=== PATIENT | female | born 2000 | race American Indian/Alaskan Native ===

== ENCOUNTER 2021-11-03 15:34 | Outpatient (CLI) | payer OTHER ==
[2021-11-03] MEDS ORDERED: LACTATED RINGERS 1,000 ML IV ONE ×2 (16:32→19:30)
[2021-11-03] MEDS ORDERED: ACETAMINOPHEN 500 MG TAB PO ONE (17:00)
[2021-11-03 17:38] LABS: Basophils # (Auto) 0.1 K/mm3 (0.0-0.1); Basophils % (Auto) 0.7 % (0.0-1.8); Eosinophils # (Auto) 0.1 K/mm3 (0.0-0.4); Eosinophils % (Auto) 0.6 % (0.0-4.3); Hematocrit 27.9 % (30.3-42.9); Hemoglobin 9.4 gm/dl (10.1-14.3); Lymphocytes # (Auto) 0.2 K/mm3 (1.2-5.4); Lymphocytes % (Auto) 2.4 % (13.4-35.0); Mean Corpuscular HGB Conc 34 % (30-34); Mean Corpuscular Volume 94 fl (79-97); Monocytes % (Auto) 10.4 % (0.0-7.3); Platelet Count 225 K/mm3 (140-440); Red Blood Count 2.98 M/mm3 (3.65-5.03); Red Cell Distribution Width 12.8 % (13.2-15.2)
[2021-11-03 17:39] LABS: Bilirubin,Urine NEG (Negative); Blood,Urine NEG (Negative); Color,Urine Yellow (Yellow); Protein,Urine <15 mg/dL mg/dL (Negative); Urobilinogen,Urine < 2.0 mg/dL (<2.0)
[2021-11-03 17:43] LABS: Bacteria,Urine 1+ /HPF (Negative); Mucus,Urine FEW /HPF; RBC,Urine < 1.0 /HPF (0.0-6.0)
[2021-11-03 20:02] VITALS: BP 96/47
== END 2021-11-03 20:18 | disposition home or self-care (01) ==
LOC: TRG 15:34 → LD 15:37 → TRG 20:18
PROVIDERS: ATTEND Obstetrics & Gynecology
DX: O26.893 Other specified pregnancy related conditions, third trimester (principal); R51.9 Headache, unspecified; R10.2 Pelvic and perineal pain; M54.9 Dorsalgia, unspecified; M54.2 Cervicalgia; M79.604 Pain in right leg; M79.605 Pain in left leg; Z3A.29 29 weeks gestation of pregnancy
CPT/HCPCS: 36415; 59025; 81001; 85025; 96360; 96361; J7120

== ENCOUNTER 2022-01-08 00:34 | Inpatient (IN) | payer BC, OTHER ==
[2022-01-08] MEDS ORDERED: BUTORPHANOL 2 MG/1 ML INJ IV PRN (03:15)
[2022-01-08] MEDS ORDERED: TERBUTALINE 1 MG/1 ML INJ SUB-Q PRN (03:15)
[2022-01-08] MEDS ORDERED: fentaNYL 100 MCG/2 ML INJ IV PRN (03:15)
[2022-01-08] MEDS ORDERED: ACETAMINOPHEN 325 MG TAB PO PRN ×2 (03:15→15:01)
[2022-01-08] MEDS ORDERED: NALOXONE 0.4 MG/1 ML INJ IV PRN ×2 (03:15→11:32)
[2022-01-08] MEDS ORDERED: MINERAL OIL 30 ML ORAL LIQD PO PRN (03:15)
[2022-01-08] MEDS ORDERED: ONDANSETRON 4 MG/2 ML INJ IV PRN ×2 (03:15→15:00)
[2022-01-08] MEDS ORDERED: CARBOPROST TROMETHAMINE 250 MCG/1 ML INJ IM PRN (03:15)
[2022-01-08] MEDS ORDERED: LIDOCAINE (2%) 20 MG/1 ML VIAL 20 ML MDV INFILTRATI ONE (03:15)
[2022-01-08] MEDS ORDERED: OXYTOCIN 10 UNIT/1 ML INJ IM PRN (03:15)
[2022-01-08] MEDS ORDERED: miSOPROStol 200 MCG TAB PR PRN (03:15)
[2022-01-08] MEDS ORDERED: LOPERAMIDE 2 MG CAP PO PRN (03:15)
[2022-01-08] MEDS ORDERED: AMPICILLIN/NS 2 GM/100 ML 2 GM/100 ML BAG IV ONE (03:15)
[2022-01-08] MEDS ORDERED: METHYLERGONOVINE MALEATE 0.2 MG/ML VIAL IM PRN (03:15)
[2022-01-08] MEDS ORDERED: ePHEDrine SULFATE 50 MG/1 ML INJ IV PRN ×2 (03:15→11:32)
[2022-01-08 03:53] LABS: Hematocrit 33.3 % (30.3-42.9); Hemoglobin 11.4 gm/dl (10.1-14.3); Mean Corpuscular HGB Conc 34 % (30-34); Mean Corpuscular Volume 91 fl (79-97); Platelet Count 282 K/mm3 (140-440); Red Blood Count 3.68 M/mm3 (3.65-5.03); Red Cell Distribution Width 13.3 % (13.2-15.2)
[2022-01-08] MEDS ORDERED: OXYTOCIN DRIP 30 UNITS/500 ML BAG IV SCH ×2 (04:00)
[2022-01-08] MEDS: LACTATED RINGERS 1,000 ML IV SCH ×2 (04:10→13:24)
[2022-01-08] MEDS ORDERED: AMPICILLIN/NS 1 GM/50 ML 1 GM/50 ML BAG IV SCH (08:00)
--- NOTE | 2022-01-08 08:32 | History and Physical Report ---
History of Present Illness Date of examination: 01/08/22 Date of admission: January 08, 2022 Chief complaint: Leakage of fluid History of present illness: 21-year-old -0-0-1 at 38+1 weeks who presents with spontaneous rupture membranes and irregular uterine contractions. Patient initiated care late at 16 weeks estimated gestational age. Her course is complicated by anemia and STD exposure with chlamydia. The patient is GBS negative Past History Past Medical History: no pertinent history Past Surgical History: no surgical history Social history: single - Obstetrical History Expected Date of Delivery: 01/21/22 Actual Gestation: 38 Week(s) 1 Day(s) : 2 Para: 1 Hx # Term Pregnancies: 1 Number of Pregnancies: 0 Spontaneous Abortions: 0 Induced : 0 Number of Living Children: 1 Medications and Allergies Allergies Allergy/AdvReac Type Severity Reaction Status Date / Time No Known Allergies Allergy Unverified 11/03/21 16:31 Active Meds: Active Medications Acetaminophen (Acetaminophen 325 Mg Tab) 650 mg PO Q4H PRN PRN Reason: Pain, Mild (1-3) Butorphanol Tartrate (Butorphanol 2 Mg/1 Ml Inj) 1 mg IV Q2H PRN PRN Reason: Pain, Moderate(4-6) LABOR PAIN Carboprost Tromethamine (Carboprost Tromethamine 250 Mcg/1 Ml Inj) 250 mcg IM ONCE PRN PRN Reason: Uterine Bleeding Ephedrine Sulfate (Ephedrine Sulfate 50 Mg/1 Ml Inj) 10 mg IV Q2M PRN PRN Reason: Hypotension Fentanyl (Fentanyl 100 Mcg/2 Ml Inj) 100 mcg IV Q2H PRN PRN Reason: Pain,Severe (7-10) LABOR PAIN Oxytocin/Sodium Chloride (Pitocin/Ns 30 Unit/500ml) 30 units in 500 mls @ 2 mls/hr IV TITR MARLEEN; Protocol Lactated Ringer's (Lactated Ringers) 1,000 mls @ 125 mls/hr IV DIRECT MARLEEN Last Admin: 01/08/22 04:10 Dose: 125 mls/hr Oxytocin/Sodium Chloride (Pitocin/Ns 30 Unit/500ml) 30 units in 500 mls @ 40 mls/hr IV TITR MARLEEN; Protocol Ampicillin Sodium (Ampicillin/Ns 1 Gm/50 Ml) 1 gm in 50 mls @ 100 mls/hr IV Q4H MARLEEN; Protocol Loperamide HCl (Loperamide 2 Mg Cap) 2 mg PO ONCE PRN PRN Reason: give with Hemabate Methylergonovine Maleate (Methylergonovine Maleate 0.2 Mg/Ml Vial) 0.2 mg IM ONCE PRN PRN Reason: Uterine Bleeding Mineral Oil (Mineral Oil 30 Ml Oral Liqd) 30 ml PO QHS PRN PRN Reason: Constipation Misoprostol (Misoprostol 200 Mcg Tab) 800 mcg KS ONCE PRN PRN Reason: Uterine Bleeding Naloxone HCl (Naloxone 0.4 Mg/1 Ml Inj) 0.1 mg IV Q2MIN PRN PRN Reason: Res Rate </= 8 or 02 SAT < 92% Ondansetron HCl (Ondansetron 4 Mg/2 Ml Inj) 4 mg IV Q8H PRN PRN Reason: Nausea And Vomiting Oxytocin (Oxytocin 10 Unit/1 Ml Inj) 10 unit IM ONCE PRN PRN Reason: Uterine Bleeding Terbutaline Sulfate (Terbutaline 1 Mg/1 Ml Inj) 0.25 mg SUB-Q ONCE PRN PRN Reason: Hyperstimulation/Hypertonicity Review of Systems All systems: negative Genitourinary: leakage of fluid, pelvic pain, contractions - Vital Signs Vital signs: Vital Signs Temp Resp Pulse Ox 98.2 F 14 100 01/08/22 01:51 01/08/22 01:51 01/08/22 01:51 Temp Pulse Resp BP Pulse Ox 97.9 F 90 18 132/85 97 01/08/22 04:17 01/08/22 08:28 01/08/22 04:17 01/08/22 08:19 01/08/22 08:28 - Physical Exam Breasts: Positive: deferred Cardiovascular: Regular rate Lungs: Positive: Clear to auscultation Abdomen: Positive: normal appearance - Obstetrical Cervical Dilatation: 2 Results Result Diagrams: 01/08/22 03:28 Abnormal lab results 01/08/22 Range/Units Unknown Membranes Rupture Positive A (Negative) All other labs normal. Assessment and Plan - Patient Problems (1) SROM (spontaneous rupture of membranes) Current Visit: Yes Status: Acute Plan to address problem: Admit to labor and delivery Augment with Pitocin
--- NOTE | 2022-01-08 11:33 | Anesthesia Consultation ---
Anesthesia Consult and Med Hx Date of service: 01/08/22 - Airway Anesthetic Teeth Evaluation: Good ROM Head & Neck: Adequate Mental/Hyoid Distance: Adequate Mallampati Class: Class II Intubation Access Assessment: Probably Good - Pulmonary Exam CTA: Yes - Cardiac Exam Cardiac Exam: RRR - Pre-Operative Health Status ASA Pre-Surgery Classification: ASA2 Proposed Anesthetic Plan: Epidural - Pulmonary Hx Smoking: No Hx Asthma: No Hx Respiratory Symptoms: No SOB: No COPD: No Home Oxygen Therapy: No Hx Pneumonia: No Hx Sleep Apnea: No - Cardiovascular System Hx Hypertension: No Hx Coronary Artery Disease: No Hx Heart Attack/AMI: No Hx Angina: No Hx Percutaneous Transluminal Coronary Angioplasty (PTCA): No Hx Cardia Arrhythmia: No Hx Pacemaker: No Hx Internal Defibrillator: No Hx Valvular Heart Disease: No Hx Heart Murmur: No Hx Peripheral Vascular Disease: No - Central Nervous System Hx Neuromuscular Disorder: No Hx Seizures: No CVA: No Hx Back Pain: No Hx Psychiatric Problems: No - Gastrointestinal Hx Ulcer: No Hx Gastroesophageal Reflux Disease: No - Endocrine Hx Renal Disease: No Hx End Stage Renal Disease: No Hx Cirrhosis: No Hx Liver Disease: No Hx Insulin Dependent Diabetes: No Hx Non-Insulin Dependent Diabetes: No Hx Thyroid Disease: No Hx Hypothyroidism: No Hx Hyperthyroidism: No - Hematic Hx Anemia: No Hx Sickle Cell Disease: No - Other Systems Hx Alcohol Use: No Hx Substance Use: No Hx Cancer: No Hx Obesity: No
--- NOTE | 2022-01-08 11:34 | Anesthesia Day of Surgery ---
Anesthesia Day of Surgery - Day of Surgery Patient Examined: Yes Patient H&P Reviewed: Yes Patient is NPO: Yes Beta Blockers: No Cardiac Clearance: No Pulmonary Clearance: No Jose Juan's Test: N/A
--- NOTE | 2022-01-08 11:55 | Progress Note ---
Labor Epidural - Labor Epidural Start Time: 11:08 Stop Time: 11:20 Performed by:: JASON STRICKLAND Procedure: Epidural Requested for Labor Pain. H&P and PT Chart reviewed and consent obtained. Time out performed and the procedure was explained, all questions answered. Patient was placed in a sitting position with monitors applied. The PTs back was prepped and draped in usual sterile fashion. The Skin was localized with 3 mL of 1% lidocaine at L3-L4. A 17-gauge Touhy epidural needle was advanced to BILLIE with saline at 7 cm and no blood/CSF was noted via epidural needle. Epidural catheter was advanced to 12 cm. There was negative aspiration for blood and CSF in the catheter and negative response to a test dose of 3 ml 1.5% lidocaine w/ Epi and a sterile dressing was applied Patient tolerated the procedure well and there were no immediate complications noted.
[2022-01-08] MEDS ORDERED: fentaNYL-BUPIV 2 MCG/ML-0.125% 200 MCG/100 ML BAG EPIDURAL SCH (12:00)
[2022-01-08] MEDS ORDERED: PROMETHAZINE 25 MG TAB PO PRN (15:00)
[2022-01-08] MEDS ORDERED: diphenhydrAMINE 25 MG CAP PO PRN (15:00)
[2022-01-08] MEDS ORDERED: LANOLIN/ZINC/DIMETHICONE (LANSINOH) 7 GM TP PRN (15:00)
[2022-01-08] MEDS ORDERED: MAGNESIUM HYDROXIDE (MOM) ORAL LIQD UDC PO PRN (15:00)
[2022-01-08] MEDS ORDERED: PROMETHAZINE 25 MG RECT SUPP PR PRN (15:00)
[2022-01-08] MEDS ORDERED: WITCH HAZEL/ GLYCERIN PAD TP PRN (15:00)
[2022-01-08] MEDS ORDERED: HYDROcodone/ACETAMINOPHEN 5-325 MG TAB PO PRN (15:01)
--- NOTE | 2022-01-08 15:15 | Procedure Note ---
OB Delivery Note - Delivery Date of Delivery: 01/08/22 Surgeon: LISE TIDWELL Estimated blood loss: 100cc - Vaginal Delivery presentation: vertex Delivery position: OA Delivery augmentation: pitocin Delivery monitor: external FHT, external uterine Route of delivery: Delivery placenta: spontaneous Delivery cord: nuchal cord, 3 umbilical vessels Episiotomy: none Delivery laceration: none Anesthesia: epidural - Infant A at 1 minute: 8 (weight 6lbs 6oz) at 5 minutes: 9 Gender: Female
[2022-01-08] MEDS ORDERED: IBUPROFEN 800 MG TAB PO SCH (16:00)
[2022-01-09 06:22] LABS: Hemoglobin 10.6 gm/dl (10.1-14.3)
--- NOTE | 2022-01-09 08:25 | Progress Note ---
Assessment and Plan A: PPD#1 s/p at term P: Routine care Discharge home later today per patient Subjective - Subjective Date of service: 01/09/22 Principal diagnosis: s/p at term Interval history: Patient without complaints this morning. She would like to go home later today if possible Patient reports: appetite normal, voiding normally, pain well controlled, ambulating normally : doing well Objective - Vital Signs Latest vital signs: Vital Signs Temp Pulse Resp BP BP Pulse Ox 01/09/22 00:36 97.4 F L 81 18 131/75 98 01/08/22 21:08 98.5 F 93 H 18 143/77 100 01/08/22 18:07 111 H 98 01/08/22 18:02 105 H 98 01/08/22 17:57 100 H 97 01/08/22 17:55 101 H 125/64 01/08/22 17:52 97 H 97 01/08/22 17:47 87 97 01/08/22 17:43 101 H 130/64 01/08/22 17:42 84 97 01/08/22 17:37 91 H 97 01/08/22 17:32 96 H 98 01/08/22 17:27 97 H 97 01/08/22 17:22 104 H 98 01/08/22 17:17 111 H 92 01/08/22 17:12 100 H 98 01/08/22 17:07 110 H 97 01/08/22 17:02 107 H 96 01/08/22 16:57 91 H 97 01/08/22 16:52 103 H 97 01/08/22 16:47 106 H 96 01/08/22 16:42 108 H 96 01/08/22 16:40 108 H 121/56 01/08/22 16:37 104 H 98 01/08/22 16:35 109 H 89 01/08/22 16:32 93 H 98 01/08/22 16:31 100 H 141/73 01/08/22 16:20 91 H 97 01/08/22 16:15 90 98 01/08/22 16:11 94 H 93 01/08/22 16:10 91 H 127/66 98 01/08/22 16:05 94 H 97 01/08/22 16:00 95 H 98 01/08/22 15:55 96 H 98 01/08/22 15:52 100 H 133/71 89 01/08/22 15:50 92 H 98 01/08/22 15:47 98 H 128/78 01/08/22 15:45 93 H 98 01/08/22 15:43 97 H 143/58 01/08/22 15:40 101 H 98 01/08/22 15:37 88 132/64 01/08/22 15:35 87 98 01/08/22 15:32 101 H 136/64 01/08/22 15:30 95 H 98 01/08/22 15:29 99 H 94 01/08/22 15:27 100 H 137/65 01/08/22 15:25 108 H 98 01/08/22 15:23 99 H 137/84 01/08/22 15:20 110 H 98 01/08/22 15:17 107 H 151/85 01/08/22 15:15 103 H 98 01/08/22 15:13 107 H 133/71 01/08/22 15:10 108 H 97 01/08/22 15:08 106 H 122/63 01/08/22 15:05 73 84 01/08/22 15:00 107 H 93 01/08/22 14:55 94 H 98 01/08/22 14:52 96 H 144/82 01/08/22 14:50 109 H 99 01/08/22 14:48 100 H 137/78 01/08/22 14:45 97 H 97 01/08/22 14:44 108 H 93 01/08/22 14:42 137/80 01/08/22 14:40 103 H 100 01/08/22 14:38 104 H 138/73 01/08/22 14:35 138 H 97 01/08/22 14:33 112 H 138/90 01/08/22 14:30 95 H 98 01/08/22 14:29 104 H 139/71 01/08/22 14:27 125 H 90 01/08/22 14:25 98 H 99 01/08/22 14:23 89 123/59 01/08/22 14:20 82 98 01/08/22 14:18 81 121/60 01/08/22 14:15 81 98 01/08/22 14:13 80 112/61 01/08/22 14:11 88 118/69 01/08/22 14:10 71 90 01/08/22 14:04 89 100 01/08/22 14:03 86 117/69 01/08/22 13:59 75 98 01/08/22 13:58 75 116/55 01/08/22 13:54 75 98 01/08/22 13:53 71 117/70 01/08/22 13:49 74 98 01/08/22 13:48 78 117/59 01/08/22 13:44 77 97 01/08/22 13:43 78 122/57 01/08/22 13:39 82 98 01/08/22 13:37 85 128/59 01/08/22 13:34 85 118/56 98 01/08/22 13:29 77 98 01/08/22 13:27 79 117/63 01/08/22 13:24 81 97 01/08/22 13:22 83 116/62 01/08/22 13:19 86 97 01/08/22 13:17 77 114/57 01/08/22 13:14 79 98 01/08/22 13:13 79 122/56 94 01/08/22 13:08 75 116/59 95 01/08/22 13:04 76 121/59 94 01/08/22 13:03 81 95 01/08/22 12:58 79 95 01/08/22 12:57 70 115/56 94 01/08/22 12:53 79 94 01/08/22 12:52 76 118/58 94 01/08/22 12:48 87 96 01/08/22 12:47 83 128/63 01/08/22 12:43 81 94 01/08/22 12:42 82 121/57 01/08/22 12:38 79 120/57 94 01/08/22 12:37 80 122/58 01/08/22 12:35 80 94 01/08/22 12:33 75 95 01/08/22 12:32 73 120/59 01/08/22 12:29 83 94 01/08/22 12:28 80 95 01/08/22 12:27 77 127/59 01/08/22 12:23 80 124/60 94 01/08/22 12:18 81 128/65 96 01/08/22 12:13 79 98 01/08/22 12:12 83 121/60 01/08/22 12:08 79 121/65 97 01/08/22 12:03 83 121/56 98 01/08/22 11:58 82 98 01/08/22 11:57 80 120/71 01/08/22 11:53 88 95 01/08/22 11:52 83 117/58 01/08/22 11:48 81 98 01/08/22 11:47 83 115/64 01/08/22 11:43 82 98 01/08/22 11:42 82 118/64 01/08/22 11:38 85 98 01/08/22 11:37 81 117/65 01/08/22 11:33 85 98 01/08/22 11:32 83 121/67 01/08/22 11:28 99 H 98 01/08/22 11:27 100 H 137/69 01/08/22 11:23 109 H 98 01/08/22 11:19 96 H 127/75 01/08/22 11:18 100 H 98 01/08/22 11:13 87 97 01/08/22 11:08 94 H 98 01/08/22 11:03 103 H 97 01/08/22 11:01 104 H 93 01/08/22 10:58 102 H 97 01/08/22 10:53 94 H 95 01/08/22 10:48 86 95 01/08/22 10:47 97 H 92 01/08/22 10:43 100 H 96 01/08/22 10:40 104 H 94 01/08/22 10:38 96 H 95 01/08/22 10:33 90 96 01/08/22 10:28 99 H 96 01/08/22 10:23 98 H 96 01/08/22 10:19 93 H 131/79 01/08/22 10:18 95 H 96 01/08/22 10:13 98 H 96 01/08/22 10:08 93 H 95 01/08/22 10:07 96 H 94 01/08/22 10:03 97 H 95 01/08/22 09:58 87 96 01/08/22 09:53 94 H 95 01/08/22 09:48 84 95 01/08/22 09:43 92 H 95 01/08/22 09:38 93 H 96 01/08/22 09:33 91 H 96 01/08/22 09:28 92 H 97 01/08/22 09:23 76 97 01/08/22 09:19 83 124/83 01/08/22 09:18 86 96 01/08/22 09:13 80 97 01/08/22 09:08 81 97 01/08/22 09:03 93 H 97 01/08/22 08:58 92 H 96 01/08/22 08:53 92 H 99 01/08/22 08:50 82 94 01/08/22 08:48 85 95 01/08/22 08:43 86 97 01/08/22 08:38 99 H 97 01/08/22 08:33 93 H 97 01/08/22 08:28 90 97 Intake and Output 01/08/22 01/09/22 01/09/22 22:59 06:59 14:59 Intake Total 240 480 Output Total 850 1200 Balance -610 -720 Intake: Intake, Free Water 240 480 Output: Urine 850 1200 Void 850 1200 Other: Total, Output Amount 300 800 # Voids Void 1 1 Estimated Blood Loss 100 - Exam Breasts: Present: deferred Abdomen: Present: soft Uterus: Present: fundal height below umbilicus Extremities: Present: normal
--- NOTE | 2022-01-09 08:26 | Discharge Summary ---
Providers - Providers Date of Admission: 01/08/22 15:00 Date of discharge: 01/09/22 Attending physician: FAITH SIMON Primary care physician: FAITH SIMON Hospitalization Reason for admission: rupture of membranes Delivery: Procedure details: Please see delivery note Episiotomy: none Laceration: none Other procedures: none complications: none Discharge diagnosis: IUP at term delivered baby: female Hospital course: This patient was admitted for rupture of membranes at term and went on to have a vaginal delivery which she tolerated well. The remainder of her course was uncomplicated and she met discharge criteria on day #1. She will follow-up in the office in 4 weeks. Condition at discharge: Stable Disposition: 01 HOME / SELF CARE / HOMELESS - Discharge Diagnoses (1) Term of female Status: Acute (2) SROM (spontaneous rupture of membranes) Status: Acute Plan - Discharge Medications Prescriptions: Ibuprofen [Motrin] 600 mg PO Q6H PRN #30 tablet PRN Reason: Pain - Provider Discharge Summary Activity: routine, no sex for 6 weeks, no heavy lifting 4 weeks, no strenuous exercise Diet: routine Instructions: routine Additional instructions: [] Smoking cessation referral if applicable(refer to patient education folder for contact #) [] Refer to [facility] Book[facility] Call your doctor immediately for: * Fever > 100.5 * Heavy vaginal bleeding ( >1 pad per hour) * Severe persistent headache * Shortness of breath * Reddened, hot, painful area to leg or breast * Drainage or odor from incision. * Keep incision clean and dry at all times and follow doctor's instructions regarding bathing/showering - Follow up plan Follow up: FAITH SIMON MD [Primary Care Provider] - 6 Weeks (Please call to schedule your appointment)
[2022-01-09 17:29] VITALS: BP 135/89
--- NOTE | 2022-01-10 07:20 | Post Anesthesia Evaluation ---
- Post Anesthesia Evaluation Patient Participated: No Airway Patent: Yes Stable Respiratory Function: Yes Nausea/Vomiting: No Temp > 96.8F: Yes Pain Manageable: Yes Adequeate Hydration: Yes Anesthesia Complications: No Block Receding Appropriately: Yes Patient on Ventilator: No
== END 2022-01-09 19:01 | disposition home or self-care (01) | DRG 807 ==
LOC: TRG 00:34 → APU 00:37 → LD 07:56 → TRG 15:44 → OB 21:15
PROVIDERS: ADMIT Obstetrics & Gynecology; ATTEND Obstetrics & Gynecology
PROC: 10E0XZZ Delivery of Products of Conception, External Approach (ICD-10-PCS; principal; 2022-01-08)
PROC: 3E0R3BZ Introduction of Anesthetic Agent into Spinal Canal, Percutaneous Approach (ICD-10-PCS; 2022-01-08)
PROC: 00HU33Z Insertion of Infusion Device into Spinal Canal, Percutaneous Approach (ICD-10-PCS; 2022-01-08)
DX: O69.81X0 Labor and delivery complicated by cord around neck, without compression, not applicable or unspecified (principal); Z37.0 Single live birth; Z3A.39 39 weeks gestation of pregnancy; Z20.822 Contact with and (suspected) exposure to COVID-19; O42.92 Full-term premature rupture of membranes, unspecified as to length of time between rupture and onset of labor
CPT/HCPCS: 36415; 59025; 84112; 85014; 85018; 85027; 86850; 86900; 86901; G0378; J3490; J0290; J2590; J7120; U0003